=== PATIENT | male | born 2000 | race Caucasian/White ===

== ENCOUNTER 2025-06-21 09:31 | Emergency (ER) | payer OTHER, SELFPAY ==
[2025-06-21 09:35] VITALS: BP 133/86
--- NOTE | 2025-06-21 10:07 | ED.GENMED ---
History of Present Illness
General
Chief Complaint: Male Genito-Urinary Symptoms
Source: patient
Exam Limitations: none
Time Seen by Provider: 06/21/25 09:58
History of Present Illness
History of Present Illness:
24-year-old male onset of right testicle pain about 330 this morning. Has been waxing and waning since then. Some nausea with it. Also some right flank pain. No urinary symptoms no fever or chills. History of a cyst in the left testicle. Has
had left testicle pain in the past. Pain is moderate in nature.
Past History
Past History
ED Past Medical History: IDDM
ED Past Surgical History: Other (ear tubes)
Social History
Tobacco: Vaping
Alcohol: Occasional
Drug: None
Living: with family
Review of Systems
Review of Systems
All Other Systems: Not applicable
Constitutional: Denies fever or chills
: Denies dysuria or frequency
Phy Exam
Physical Exam
Physical Exam:
GENERAL: Alert and oriented in no apparent distress
EYE: Orbits normal.
CARDIAC: Regular rate and rhythm without any obvious murmurs.
LUNGS: Clear breath sounds,normal
ABDOMEN: Soft, without focal tenderness or distention. Glucose monitor left lower abdominal wall
: Scrotum grossly normal. No high riding testicle. Weak cremasteric reflexes bilaterally but symmetrical. Mild tenderness to the testicle without swelling warmth erythema.
NEUROLOGICAL: Alert and oriented , grossly non-focal
SKIN: Warm and dry
PSYCH: Normal and appropriate interaction.
Course
Orders/Labs/Results
Orders:
Orders
06/21/25 09:37
Scrotum US [US Scrotum] Urgent
Comment:
Reason For Exam: pain in R testicle
06/21/25 10:05
IV Insert/Care/Rem.- Treatment PRN
06/21/25 10:28
Complete Blood Count/With Diff Urgent
06/21/25 10:29
Ketorolac [Toradol] 15 mg IV NOW STA
06/21/25 10:56
CT Abd/pel Without Iv Or Oral Urgent
Comment:
Reason For Exam: Right flank/testicle pain
06/21/25 11:07
Comprehensive Metabolic Panel Urgent
06/21/25 14:11
Urinalysis Reflex To Culture Urgent
Date Specimen was Collected: 06/21/25
Time Specimen was Collected: 14:09
Abnormal Lab Results
06/21/25 06/21/25 06/21/25
10:28 11:07 14:11
Absolute Monos (auto) 0.7 H 10^3/uL
(0.1-0.6)
Absolute Eos (auto) 1.2 H 10^3/uL
(0-0.7)
Eosinophils % 15.8 H %
(0-6)
Sodium 132 L mmol/L
(135-145)
Glucose 263 H mg/dl
(70-99)
Urine Glucose 4+ A
(Negative)
06/21/25 10:28
06/21/25 11:07
Vital Signs
Initial and Last Documented VS:
Initial Vital Signs
Temp Pulse Resp BP Pulse Ox
97.9 F 83 16 133/86 99
06/21/25 09:35 06/21/25 09:35 06/21/25 09:35 06/21/25 09:35 06/21/25 09:35
Last Documented Vital Signs
Temp Pulse Resp BP Pulse Ox
97.9 F 79 16 135/78 99
06/21/25 09:35 06/21/25 12:55 06/21/25 12:55 06/21/25 12:55 06/21/25 12:55
MDM/Problems Addressed
Differential Diagnosis Includes:
With relatively acute pain would have course have to consider torsion or intermittent torsion. Relatively low suspicion clinically. Patient is in no distress he is nontoxic does not appear to be unusually uncomfortable. There is no swelling or
high riding testicle. Does have mild reflexes bilaterally that are symmetrical. Patient to ultrasound now. Would also consider kidney stone with referred pain as the clinical findings are minimal.
*Radiology
Radiology exam reviewed: radiology read reviewed (Negative ultrasound. Good arterial and venous flow) and other (Negative CT)
*Pulse Oximetry
SaO2: 99
Oxygen Mode of Delivery: Room air
Patient hypoxic: no (99)
*Critical Care Note
Total Time (30-74mins, 75-104mins- exclusive of procedures): Not Applicable
Update Note
Update Note:
Patient remains in no distress and nontoxic in appearance. ReSound with good arterial and venous flow. Labs are stable. Mild elevated blood sugar. Incidental diverticulosis on CT. Patient was reexamined both sitting and standing. The right
testicle lies slightly higher than the left but is not horizontal. There is reasonable and symmetrical cremasteric reflexes. He has mild tenderness of the testicle but no swelling no warmth no erythema. Very low suspicion for testicular torsion
at this time. Symptomatic treatment and follow-up
ED Attending Note
-
Portions of this chart may have been created with voice recognition software.� Occasional wrong word or��sound alike� substitutions may have occurred due to the inherent limitations of voice recognition software.
Discharge Plan
Departure
Patient Disposition: Home (Routine Discharge)
Date of Disposition: 06/21/25
Time of Disposition: 14:40
Patient with high blood pressure during this ER visit?: Yes
Discharge Problem:
Right testicle pain, Hyperglycemia
Instructions: High blood sugar in adults - ED (DC), BLOOD PRESSURE
Prescriptions:
No Action
ondansetron 4 mg tablet,disintegrating
4 mg PO Q8H PRN (Reason: nausea and vomiting) 4 Days Qty: 12 0RF
Referrals:
Gavi Riuz CRNP [Family Provider, Family Practice]
Stevan Yao MD [Active, Urology] - Next open appointment
Activity Restrictions/Additional Instructions:
Monitor your blood sugars
Return with increasing pain swelling redness fever or if symptoms do not have resolved in 1 to 2 days
Return immediately if pain suddenly becomes worse
Follow-up with urology
Watch your blood sugars
Interventions
Interventions:
*Risk Screen - Suicide Last Done: 06/21/25 09:35
*General Assessment Last Done: 06/21/25 10:30
*Neglect/Abuse Screening Last Done: 06/21/25 09:35
*ED- Fall Risk Assessment Last Done: 06/21/25 10:13
*ED COVID-19 Vaccine History Last Done: 06/21/25 10:13
*ED Influenza Vaccine History Last Done: 06/21/25 10:13
ED-Male Genitourinary Assessment Last Done: 06/21/25 10:13
Discharge Date and Time
Print Language: [id number]
[2025-06-21 10:29] VITALS: BMI 38.0
[2025-06-21] MEDS: TORADOL 15 MG IV (10:32)
[2025-06-21 10:35] LABS: Hematocrit 41.2 % (39.0-52.0); Hemoglobin 14.8 g/dL (13.0-18.0); Mean Corp Hgb Conc. 35.9 g/dL (33.0-37.0); Mean Corpuscular Volume 81.7 fL (80.0-94.0); Nucleated Red Blood Cells % 0 % (-); Platelet Count 235 10^3/uL (130-400); Red Cell Dist. Width 11.9 % (11.5-14.5)
[2025-06-21 11:36] LABS: ALT (SGPT) 40 U/L (0-50); AST (SGOT) 31 U/L (17-59); Albumin 4.2 g/dl (3.5-5.0); Alkaline Phosphatase 77 U/L (38-126); Blood Urea Nitrogen 11 mg/dl (9-20); Calcium 9.4 mg/dl (8.4-10.2); Carbon Dioxide 24 mmol/L (22-30); Chloride 104 mmol/L (98-107); Estimated Creatinine Clearance > 125 ml/min; Glucose 263 mg/dl (70-99); Potassium 4.6 mmol/L (3.5-5.1); Sodium 132 mmol/L (135-145); Total Protein 7.0 g/dl (6.3-8.2); eGFR > 60.00
[2025-06-21 12:55] VITALS: BP 135/78
[2025-06-21 14:28] LABS: Urine Character Clear (Clear)
== END 2025-06-21 14:59 | disposition home or self-care (01) ==
LOC: EMR 09:31
PROVIDERS: EMERGENCY PHYSICIAN Emergency Medicine; FAMILY PHYSICIAN Registered Nurse
DX: N50.811 Right testicular pain (principal); E10.65 Type 1 diabetes mellitus with hyperglycemia; F17.290 Nicotine dependence, other tobacco product, uncomplicated; Z79.4 Long term (current) use of insulin
CPT/HCPCS: 99284; 96374; 74176; 76870; 80053; 81003; 85025; 93976